=== PATIENT | female | born 1965 | race Caucasian/White ===

== ENCOUNTER 2017-08-01 10:55 | Inpatient (IN) ==
[2017-07-26 18:51] LABS: Appearance,Urine CLEAR; Bilirubin,Urine NEG (NEG); Color,Urine YELLOW; Glucose,Urine (UA) NEGATIVE (NEG); Leukocyte Esterase,Urine NEG /uL (NEG); Protein,Urine NEG (NEG); Specific Gravity,Urine 1.017 (1.000-1.035); Urine Blood NEG mg/dL (<0.03); Urobilinogen,Urine NEG (NEG)
[2017-07-26 19:56] LABS: Basophils # (Auto) 0 K/mcL (0.0-0.3); Basophils % (Auto) 0.4 % (0.0-2.0); Eosinophils # (Auto) 0.1 K/mcL (0.0-0.7); Eosinophils % (Auto) 2.2 % (0.0-7.0); Granulocytes % (Auto) 49.4 % (38.0-78.0); Lymphocytes % (Auto) 38.2 % (15.5-49.0); Mean Cell Volume 85.8 fL (80.0-100.0); Mean Corpuscular HGB Conc 33.4 g/dL (31.0-36.0); Mean Corpuscular Hemoglobin 28.7 pg (26.0-34.0); Monocytes # (Auto) 0.5 K/mcL (0.1-0.9); Monocytes % (Auto) 9.8 % (1.0-12.0); Platelet Count 246 K/mcL (140-440); RBC 4.22 M/mcL (4.00-5.20); Red Cell Distribution Width 13.6 % (11.5-14.5)
[2017-07-26 20:14] LABS: Blood Urea Nitrogen 18 mg/dl (6-20)
[~2017-08-01 10:55] MED LIST: CELECOXIB 200 MG CAPSULE PO SCH; KETOROLAC 30 MG, ROPIVACAINE HCL/PF 49.5 ML, EPINEPHrine 0.5 MG, 0.9 % SODIUM CHLORIDE ... IJ ONE; PREGABALIN 75 MG CAPSULE PO SCH; ceFAZolin 1 GM VIAL IV SCH; oxyCODONE 10 MG TAB.ER.12H PO SCH
[2017-08-01] MEDS ORDERED: SCOPOLAMINE 1 PATCH PATCH TOPICAL ONE (13:05)
[2017-08-01] MEDS ORDERED: LIDOCAINE HCL/PF 100 MG/5 ML SYRINGE IV ONE (13:55)
[2017-08-01] MEDS ORDERED: MIDAZOLAM 5 MG/5 ML VIAL IV ONE (13:55)
[2017-08-01] MEDS ORDERED: PROPOFOL 200 MG/20 ML VIAL IV ONE (13:55)
[2017-08-01] MEDS ORDERED: TRANEXAMIC ACID 1,000 MG/10 ML VIAL IV ONE ×3 (13:55→17:00)
[2017-08-01] MEDS ORDERED: DEXAMETHASONE 10 MG/ML VIAL IV ONE (13:55)
[2017-08-01] MEDS ORDERED: PROMETHAZINE 25 MG/ML VIAL IV ONE (13:55)
[2017-08-01] MEDS ORDERED: ROPIVACAINE HCL/PF 20 ML VIAL IJ ONE (13:55)
[2017-08-01] MEDS ORDERED: BISACODYL 10 MG SUPP.RECT PR PRN (15:34)
[2017-08-01] MEDS ORDERED: FLEETS ADULT ENEMA PR PRN (15:34)
[2017-08-01] MEDS ORDERED: POLYETHYLENE GLYCOL 3350 17 GM PACKET PO PRN (15:34)
[2017-08-01] MEDS ORDERED: HYDROmorphone 2 MG/ML VIAL IV PRN (15:34)
[2017-08-01] MEDS ORDERED: MAGNESIUM HYDROXIDE 30 ML ORAL.SUSP PO PRN (15:34)
[2017-08-01] MEDS ORDERED: ONDANSETRON 4 MG/2 ML VIAL IV PRN (15:34)
[2017-08-01] MEDS ORDERED: BENZOCAINE/MENTHOL 1 LOZENGE PO PRN (15:34)
--- NOTE | 2017-08-01 15:34 | Brief Operative Note ---
Date of procedure: 08/01/17 Pre-op diagnosis: R knee DJD Post-op diagnosis: same Procedure: Right robotic assisted total knee arthroplasty Grafts/Implants: Yes (Royal CR 2 triathlon femur, 2 tibia, 9mm insert, 31 patella) Anesthesia: spinal, GLMA Findings: arthritis Complications: none Surgeon: Pedro Johnson Supportability Engineer: Clifton Henriquez Estimated blood loss (cc): 20 Specimens Removed/Pathology: none sent Condition: stable Disposition: PACU
--- NOTE | 2017-08-01 16:31 | Operative Note ---
DATE OF OPERATION: 08/01/2017 PREOPERATIVE DIAGNOSIS: Right knee degenerative joint disease. POSTOPERATIVE DIAGNOSIS: Right knee degenerative joint disease. PROCEDURE PERFORMED: Right robotic-assisted total knee arthroplasty placing a Courtney Triathlon cruciate retaining size 2 femoral component, size 2 tibial baseplate, a 9 mm X3 tibial insert with a 31 mm patellar button. SURGEON: Pedro Johnson M.D. MANAGER OF TRAINING: Reuben Henriquez PA-C. ANESTHESIA: Spinal plus general. DRAINS: None. SPECIMENS: Bone cuts which were discarded. BLOOD LOSS: 20 mL. COMPLICATIONS: None. POSTOPERATIVE CONDITION: Stable. INDICATIONS FOR SURGERY: This is a 52-year-old female who has had longstanding problems with her right knee. She had a knee arthroscopy done a number of years ago and then a knee arthroscopy done by me approximately a year and a half ago. At the time of surgery, we found a large medial femoral condyle defect. I performed a microfracture. She initially did okay with this but then began progressive deterioration that was no longer responsive to conservative treatment. Radiographs showed progression and joint space narrowing. FINDINGS AT SURGERY: She did have full-thickness cartilage loss off the main weightbearing surface of the medial femoral condyle, as well as significant patellar chondromalacia. Post implantation showed good limb alignment, patellar tracking, and joint stability. PROCEDURE IN DETAIL: The patient had been seen preoperatively and informed consent had been obtained after discussion of risks and benefits of surgery. Risks including, but not limited to, bleeding, possibly requiring transfusion; infection, possibly requiring implant removal, prolonged IV antibiotics; injury to nerves, blood vessels, and other surrounding structures; anesthetic risks; incomplete or no resolution of symptoms; continued stiffness, pain, swelling, instability, clunking; DVT and pulmonary embolus risks; and the possibility of needing further revision surgery. She understood these risks and wished to proceed. Correct operative site was marked in preoperative holding and patient was taken to the operating room and general anesthesia was induced after spinal anesthesia was given. The right lower extremity was carefully prepped and draped in normal sterile fashion, and a time-out was performed verifying patient name, operative site, and plan. Esmarch was used to exsanguinate the extremity and tourniquet was inflated to 300 mmHg. Midline incision was made with a scalpel through skin and subcutaneous tissue. Irrisept was irrigated and then a medial parapatellar arthrotomy made. Subperiosteal exposure was done of the anterior medial tibia. Anterior horns of the menisci were removed. ACL was transected. Femoral and tibial checkpoints were placed. We then made two stab incisions over the femur and two over the tibia and two bicortical pins placed in each and then the arrays were connected. We did our hip center of rotation check, as well as medial and lateral malleoli. Double-checks were done of the femoral and tibial check points. We then used the blue probe to do our mapping. After this was completed, there was limited osteophyte removal and then our flexion and extension gaps were checked. We ended up placing two degrees of varus on the tibia and 1 degree of varus on the femur to balance and then added 1 degree of external rotation. This gave us 17 mm flexion and extension gaps both medially and laterally. We went ahead and then used the robotic AIDEE arm to make our bone cut. Once this was completed, we marked our tibial rotation. The femur was elevated and posterior osteophytes removed with a curved osteotome. The tibia was prepared with a boss reamer and keel punch and then a keeled tibial trial placed. The femoral trial was placed and a 9 insert trial was placed. The knee was taken into extension with good stability. We then checked our patella, initially measured 19 mm. Our first freehand cut was done, and we sized this to a 31 patella. We checked our thickness, and we were 2 mm larger at 21 mm, so I did a repeat cut with a saw, taking essentially one saw blade's thickness. We then rechecked our thickness and we were at 20 mm. A lateral facetectomy was performed and then the knee was checked and patellar tracking was good, so implants were opened. The joint was filled with Irrisept, after a minute we pulse lavaged copiously with saline. Antibiotic cement was mixed, and the tibia was cemented followed by the femur. A 9 insert trial placed. The patellar button was then cemented. The joint was filled with Irrisept. We did remove our checkpoints. The pain cocktail was then injected into the pericapsular and subcutaneous tissues. The knee was held in full extension until cement had fully hardened. We checked our extension, and we were 3 degrees short of full extension, so we went ahead and removed our pins for our arrays. The 9 insert was opened and the trial was removed. We injected pain cocktail in the posterior capsule, and then irrigated with saline and then impacted the insert, carefully verifying it was fully seated. The knee was taken through range of motion, had excellent patellar tracking and stability, so we used a #2 FiberWire [id number] interrupted around the superior quadrant of the patella with the knee in approximately 45 degrees of flexion. We then used a #1 Vicryl interrupted [id number] around the inferior quadrant. A running #1 Vicryl stitch was used for patellar tendon and quad tendon. Another Irrisept irrigation was done, after a minute pulse lavage, and then 2-0 Monocryl used for subcutaneous and then Dermabond for skin closure. Pipestem were used for the pin sites. A sterile dressing was applied. Tourniquet was released. The patient was awakened, extubated, and transferred to recovery in stable condition. [email or web address]:costa Job ID: [id number] Doc ID: [id number] Pedro Johnson MD
--- NOTE | 2017-08-01 16:40 | XRay Report ---
CLINICAL INFORMATION: Reason for Exam:Post-op total knee. COMPARISON: None. FINDINGS: Total knee prostheses is anatomically aligned. No osseous abnormality. Periarticular gas and soft tissue swelling seen as expected IMPRESSION: Negative Interpreted and Authenticated by: Charles Wilson 08/01/17
[2017-08-01] MEDS: 0.9 % SODIUM CHLORIDE 1,000 ML IV SCH (17:06)
[2017-08-01] MEDS: KETOROLAC 30 MG/ML VIAL IV SCH (17:06)
[2017-08-01] MEDS: oxyCODONE/APAP 5/325MG TABLET PO PRN (18:14)
[2017-08-01] MEDS: ASPIRIN 325 MG ENTERIC COATED TABLET PO SCH (20:33)
[2017-08-01] MEDS: DOCUSATE SODIUM 100 MG CAPSULE PO SCH (20:33)
[2017-08-01] MEDS ORDERED: VITAMIN D3 1,000 UNIT TABLET PO SCH (21:00)
[2017-08-01] MEDS ORDERED: SENNOSIDES 1 TABLET PO SCH (21:00)
[2017-08-01] MEDS ORDERED: PRAVASTATIN 20 MG TABLET PO SCH (21:00)
[2017-08-01] MEDS ORDERED: traZODone HCL 50 MG TABLET PO SCH (21:00)
[2017-08-01] MEDS ORDERED: Mirabegron [Myrbetriq] 25 MG PO SCH (21:00)
[2017-08-01] MEDS ORDERED: ASCORBIC ACID 500 MG TABLET PO SCH (21:00)
[2017-08-01] MEDS ORDERED: VENLAFAXINE HCL 25 MG PO SCH (21:00)
[2017-08-01] MEDS: ceFAZolin 1 GM VIAL IV SCH (22:29)
[2017-08-01] MEDS: 0.9 % SODIUM CHLORIDE 10 ML SYRINGE IV SCH (22:29)
[2017-08-01] MEDS: DILTIAZEM 30 MG TABLET PO SCH (23:19)
[2017-08-02] MEDS: oxyCODONE/APAP 5/325MG TABLET PO PRN ×2 (00:25→10:17)
[2017-08-02] MEDS: KETOROLAC 30 MG/ML VIAL IV SCH ×2 (00:25→05:29)
[2017-08-02] MEDS: 0.9 % SODIUM CHLORIDE 1,000 ML IV SCH ×2 (01:34→10:46)
[2017-08-02] MEDS: 0.9 % SODIUM CHLORIDE 10 ML SYRINGE IV SCH (05:29)
[2017-08-02] MEDS: ceFAZolin 1 GM VIAL IV SCH (05:35)
--- NOTE | 2017-08-02 07:35 | Discharge Summary ---
Ortho Discharge - TKA - Patient Instructions Diet: Regular Diet Activity: weight bearing as tolerated Total Knee Protocol: For Total Knee: Start ROM ABELINO with stationary bike or rocking chair. Work on gaining full extension of knee. Posterior dislocation precautions provided. Hip abductor strengthening and gait training instructions provided. Apply Cryocuff as instructed. Dressing Care: May shower in 2 days - Follow Up Plan Follow Up Appointments: Clifton Henriquez PA-C [Physician Creative Technologist] - Disposition: Home, Self-Care Prognosis: Good Rehab Potential: Good - Orders For Discharge Prescriptions: Aspirin [Ecotrin] 325 mg PO BID #28 tab.ec oxyCODONE/APAP [Percocet 5-325 mg] 1 - 2 tab PO Q4H PRN #90 tablet PRN Reason: Pain Additional Discharge Orders: Physical Therapy at Discharge - TKA Location: Determined By Patient Toilet Riser Discharge Order Location: Determined By Patient Walker Location: Determined By Patient
[2017-08-02] MEDS: ASPIRIN 325 MG ENTERIC COATED TABLET PO SCH (08:52)
[2017-08-02] MEDS: DOCUSATE SODIUM 100 MG CAPSULE PO SCH (08:52)
[2017-08-02] MEDS: DILTIAZEM 30 MG TABLET PO SCH (08:53)
== END 2017-08-02 10:24 | disposition home or self-care (01) | DRG 470 ==
LOC: MEDSUR 10:55
PROVIDERS: ADMIT Orthopaedic Surgery; ATTEND Orthopaedic Surgery